=== PATIENT | male | born 1990 | race Caucasian/White ===

== ENCOUNTER 2025-05-01 15:39 | Emergency (ER) | payer SELFPAY ==
[~2025-05-01] VITALS: Ht 195.6 cm; Wt 76.2 kg
--- NOTE | 2025-05-01 18:07 | Physician Documentation ---
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 Patient reports that he did not immediately lose consciousness though fell asleep approximately 10 minutes after the event, the prop and effects designer is his co-worker who witnessed the event and confirms story. Patient's co-worker reports patient has was sitting in their vehicle while she ran into a store and fell asleep for approximately 5 minutes and was easily woken though seemed a little out of it for a few minutes though is now at baseline. Patient reports nausea without vomiting, patient reports no vision changes. Patient reports no other acute symptoms or concerns. Medication Reconciliation Allergies: Coded Allergies: No Known Allergies (Unverified , 05/01/25) Past Medical History Past Medical History: No Pertinent History Review of Systems ROS Headache and nausea as stated above in the HPI, otherwise all systems are reviewed and negative. Physical Exam Vital Signs: Temperature: 97.4, Source: Temporal, Heart Rate: 74, Respiratory Rate: 15, BP: 136/77, Pulse Oximetry: 97, Weight: 76.200 Physical Exam VITALS: Reviewed and as above. GENERAL: Alert, nontoxic appearing, no apparent distress. HEENT: PERRLA, EOMI, no tierney sign, no drainage from auditory canals, no raccoon eyes, no neck pain or cervical tenderness to palpation, no scalp hematoma, anterior left scalp mildly tender to palpation RESPIRATORY: No increased work of breathing, no respiratory distress, speaking in full clear sentences Progress Results/Orders Results/Orders Completed Orders - SHARLENE MONTOYA [employer] Ketorolac Trometh 15mg/Ml Vial (Toradol (05/01/25 18:10) Vital Signs 05/01/25 05/01/25 15:41 18:35 Temp 97.4 98.6 Pulse 74 70 Resp 15 16 B/P (MAP) 136/77 130/72 Pulse Ox 97 99 Medical Decision Making Findings This 34-year-old male presented with nausea and headache after walking at a brisk pace into a metal pole striking his head, it was reassuring patient did not immediately lose consciousness and despite having a brief episode of confusion returning to baseline within 5 minutes per patient's co-worker. Additionally reassuring patient reports no persistent vomiting or vision changes. There was no neck pain reported or demonstrated on physical exam therefore imaging of C-spine not indicated. CT of head not indicated per [facility] head CT rule. Remainder of physical exam was benign patient is otherwise well-appearing reporting no other acute symptoms or concerns. Based on history and physical symptoms are consistent with a concussion. Patient is stable for outpatient follow up. Patient provided home care instructions, return to care precautions and follow up instructions which he acknowledged understanding of. Differential Dx:Considerations: Include: Close head injuyr, Sinusitis, Other (Skull fracture, scalp hematoma, laceration) Departure Disposition: HOME / SELF CARE / HOMELESS Impression: Primary Impression: Concussion Qualified Codes: S06.0X0A - Concussion without loss of consciousness, initial encounter Condition: Improved Discharge Instructions: Concussion, Adult Additional Instructions: Please see the attached home care instructions for concussion, you may also Internet search [facility] concussion care guidelines. You may use ibuprofen and or Tylenol as needed for pain as directed by [id number] packaging. Please follow up with your primary care provider in the next few days. Please return to the emergency department for any new or worsening concerning symptoms. Do not take ibuprofen for the next 12 hours as you received a shot of Toradol which replaces ibuprofen Departure Forms: Excuse form Work or School Excused From: Work Excuse beginning now through the following date: May 03, 2025 Referrals: NO PRIMARY CARE PROVIDER (PCP) Education Educated: Patient Educated regarding: diagnosis, treatment, prognosis, need for follow up Signature Scribe Signature: No scribe Attestation: The note accurately reflects work and decisions made by me.MEHNAZ Anderson 05/02/25 03:09 SHARLENE MONTOYA May 01, 2025 18:07
[2025-05-01] MEDS: ketorolac trometh 15mg/ml vial 15 MG/ML ML IM ONE (18:29)
[2025-05-01 18:35] VITALS: BP 130/72; PULSE 70; RESP 16; TEMP 98.6; O2SAT 99
== END 2025-05-01 18:36 | disposition home or self-care (01) ==
LOC: ER 15:40
DX: S06.0X0A Concussion without loss of consciousness, initial encounter (principal); R11.0 Nausea; X58.XXXA Exposure to other specified factors, initial encounter; Y93.01 Activity, walking, marching and hiking; Y92.89 Other specified places as the place of occurrence of the external cause; Y99.8 Other external cause status
CPT/HCPCS: 96372; 99283; J1885